=== PATIENT | female | born 1995 | race African-American/Black ===

== ENCOUNTER → 2020-03-17 09:44 | Outpatient (CLI) | payer OTHER, SELFPAY ==
[2020-03-17 12:22] LABS: Hematocrit 30.3 % (36-46)
[2020-03-17 12:35] LABS: GTT (PREG) 1 Hour PP 50gm Dose 86 mg/dL (76-139)
== END ==
PROVIDERS: Referring Provider Obstetrics & Gynecology; Visit Provider Obstetrics & Gynecology
DX: Z34.02 Encounter for supervision of normal first pregnancy, second trimester (principal); Z3A.26 26 weeks gestation of pregnancy
CPT/HCPCS: 36415; 82950; 85014; 85018

== ENCOUNTER → 2020-04-27 16:16 | Outpatient (CLI) | payer OTHER, SELFPAY ==
[2020-04-27 18:28] LABS: Add Manual Diff / Slide Review NO; Basophils Absolute Auto 0 /uL (0-100); Basophils Percent Auto 0.1 % (0-2); Eosinophils Absolute Auto 100 /uL (0-450); Eosinophils Percent Auto 1.3 % (2-4); Hematocrit 32.5 % (36-46); Hemoglobin 10.6 g/dL (12.0-16.0); Lymphocytes Absolute Auto 2200 /uL (1100-4500); Lymphocytes Percent Auto 21.6 % (25-40); Mean Corpuscular HGB Conc 32.5 % (30-36); Mean Corpuscular Hemoglobin 29.5 PG (26-34); Mean Corpuscular Volume 90.5 fL (80-100); Monocytes Absolute Auto 1000 /uL (0-900); Monocytes Percent Auto 9.7 % (3-14); Neutrophils Absolute Auto 7000 /uL (1500-7000); Neutrophils Percent Auto 67.3 % (50-75); Platelet Count 195 X10^3/uL (150-400); Red Blood Cell Count 3.59 X10^6/uL (4.0-5.2); Red Cell Distribution Width 13.4 % (11.6-14.8); White Blood Cell Count 10.4 X10^3/uL (4.5-11.0)
== END ==
PROVIDERS: Referring Provider Obstetrics & Gynecology; Visit Provider Obstetrics & Gynecology
DX: D64.9 Anemia, unspecified (principal)
CPT/HCPCS: 36415; 85025

== ENCOUNTER → 2020-05-11 17:30 | Outpatient (CLI) | payer OTHER, SELFPAY ==
[2020-05-13 08:13] LABS: Strep Grp B PCR NEG for Grp B Strep
== END ==
PROVIDERS: Visit Provider Obstetrics & Gynecology
DX: Z34.03 Encounter for supervision of normal first pregnancy, third trimester (principal); Z3A.35 35 weeks gestation of pregnancy
CPT/HCPCS: 87653

== ENCOUNTER 2020-05-26 09:07 | Observation (INO) | payer OTHER, SELFPAY ==
[2020-05-26 09:34] LABS: RBC Urine None Seen (0-5/HPF)
[2020-05-26 09:35] LABS: Appearance Urine UA CLEAR; Bilirubin Urine UA NEGATIVE (NEGATIVE); Color Urine UA YELLOW; Glucose Urine UA NEGATIVE (Negative); Ketones Urine UA TRACE (NEGATIVE); Leukocyte Esterase Urine UA TRACE (NEGATIVE); Nitrite Urine UA NEGATIVE (Negative); Occult Blood Urine UA NEGATIVE (Negative); Protein Urine UA 1+ (Negative); Urobilinogen Urine UA 0.2 E.U./dL (0.2)
[2020-05-26 09:37] LABS: pH Urine UA 6.5 (4.5-8.0)
[2020-05-26 09:46] LABS: Bacteria Urine Moderate (10-30); Culture Indicated Urine Specimen Cultured; Mucus Urine 2+ (Negative); Squamous Epithelial Cell Urine 1-5 /HPF (0-5/HPF); WBC Urine 1-5/HPF (0-5/HPF)
== END 2020-05-26 12:31 | disposition home or self-care (01) ==
PROVIDERS: Admitting Provider Obstetrics & Gynecology; Referring Provider Obstetrics & Gynecology; Visit Provider Obstetrics & Gynecology
DX: O99.013 Anemia complicating pregnancy, third trimester (principal); Z3A.37 37 weeks gestation of pregnancy
CPT/HCPCS: 59025; 59050; 81001; 87086; G0378; G0379

== ENCOUNTER 2020-05-30 19:07 | Inpatient (IN) | payer OTHER, SELFPAY ==
[2020-05-30 20:25] LABS: COVID19 -Nasal RAPID Negative (Negative)
[2020-05-30] MEDS: LACTATED RINGERS 1,000 ML 100 ML IV (23:00)
[2020-05-31 00:44] LABS: Add Manual Diff / Slide Review NO; Basophils Absolute Auto 0 /uL (0-100); Basophils Percent Auto 0.2 % (0-2); Eosinophils Absolute Auto 100 /uL (0-450); Eosinophils Percent Auto 1.3 % (2-4); Hematocrit 35.5 % (36-46); Hemoglobin 11.4 g/dL (12.0-16.0); Lymphocytes Absolute Auto 2100 /uL (1100-4500); Lymphocytes Percent Auto 22.5 % (25-40); Mean Corpuscular HGB Conc 32.3 % (30-36); Mean Corpuscular Hemoglobin 29.4 PG (26-34); Mean Corpuscular Volume 91.3 fL (80-100); Monocytes Absolute Auto 1000 /uL (0-900); Monocytes Percent Auto 10.7 % (3-14); Neutrophils Absolute Auto 6000 /uL (1500-7000); Neutrophils Percent Auto 65.3 % (50-75); Platelet Count 202 X10^3/uL (150-400); Red Blood Cell Count 3.89 X10^6/uL (4.0-5.2); Red Cell Distribution Width 12.9 % (11.6-14.8); White Blood Cell Count 9.1 X10^3/uL (4.5-11.0)
[2020-05-31] MEDS: OXYTOCIN PREMIX 30 UNIT/500 ML PLAST..BAG IV (04:00)
--- NOTE | 2020-05-31 06:20 | P.HPOB_ITS ---
OB HPI Date/Time Date of admission: 05/30/20 Date Patient Seen: 05/31/20 Time Patient Seen: 06:20 History of Present Condition Chief complaint: EVAL OF LABOR : 1 Para: 0 Estimated Date of Delivery: 06/15/20 Estimated Gestational Age (weeks): 37 Narrative: Sobia Bonds is a 24 year old @37+6 admitted in labor after SROM yesterday at 1700 for clear fluid, with copious leakage on admission and +amnisure. Patient has been augmented with pitocin overnight, reassuring and maternal status, no PIH complaints, no obstetric complaints except contractions and LOF prior to epidural. complicated by maternal SMA, partner deployed and could not be tested. MFM evaluated, patient to follow up . Patient has history of G6PD deficiency, denies any other contributory medical, surgical, social history. Reports family history of blood pressure problems in labor, uncertain if high or low. History of Present care: none Dating criteria: based on 1st trimester US only Ultrasounds: normal mid trimester US Obstetrical complications: none Medical complications: other (G6PD deficiency) Preadmission Labs Blood type: B (+) positive -: Antibody screen: negative, GBS status: negative, HBsAG: negative, HIV: negative and RPR/VDLR: negative -: Chlamydia screen: not detected and Gonorrhea screen: not detected -: Rubella: immune and Varicella: immune PAP: Normal Quad screen: Normal Urine: no growth 1 hr GTT: 86 Evaluation Evaluation Baseline heart rate: 155 Variability: Moderate (11-25) monitor accelerations: Present monitor decelerations: Prolonged (x1, 1 hr ago in setting of tachysystole) Contraction Frequency (minutes): 5 Uterine Contraction Intensity: Mild Category of Tracing: Reactive Status: Category l Cervical dilation (cm): 7 Cervical effacement (%): 100 station: -1 Laboratory results: Laboratory Tests 05/30/20 05/30/20 05/30/20 19:30 20:35 20:35 WBC 9.1 RBC 3.89 L Hgb 11.4 L Hct 35.5 L MCV 91.3 MCH 29.4 MCHC 32.3 RDW 12.9 Plt Count 202 Neut % (Auto) 65.3 Lymph % (Auto) 22.5 L [place] % (Auto) 10.7 Eos % (Auto) 1.3 L Baso % (Auto) 0.2 Neut # (Auto) 6000 Lymph # (Auto) 2100 [place] # (Auto) 1000 H Eos # (Auto) 100 Baso # (Auto) 0 SARS-CoV-2 (PCR) Negative Blood Type B Positive Antibody Screen Negative Comments: EFW 7#8 [facility] Medical History Acute bronchitis Adjustment disorder with mixed anxiety and depressed mood Allergic rhinitis Bacterial vaginosis Depressive disorder Skyssxs-3-jdakaqlbr dehydrogenase deficiency anemia Hyperopia of both eyes Keratosis pilaris Ovarian cyst (~10/15/19) Pelvic pain PTSD (post-traumatic stress disorder) Surgical History H/O adenoidectomy (~2002) H/O wisdom tooth extraction (~2017) S/P tonsillectomy (~2002) Family History Mother Thrombotic thrombocytopenic purpura (TTP) Father Bipolar 1 disorder Grandmother Stroke Grandfather No problems noted. Grandmother No problems noted. Grandfather Family estrangement Sister Lupus Social History marital status: unmarried,single (FOB will be back Mid-June 2020) lives independently: Yes pets and animals: Yes (Snake : Ball Python Peaceful and will be given away when baby arrives) education level: college (some College) occupational status: employed (Desk Work) current occupational exposures/hazards: Yes special reyna needs: No Smoking Status: Former smoker alcohol intake: former (prepregnancy) substance use type: does not use and marijuana (smoked 5-7 wga : aware and not using) Meds Home Medications and Allergies Home Medications Medication Instructions Recorded Confirmed Type ascorbic acid 100 mg-elderberry tab PO 02/17/20 05/25/20 History fruit 50 mg chewable tablet prenat.vits,abhishek,orc-qoos-ehdxo 1 tab PO DAILY 02/17/20 05/25/20 History cephalexin 500 mg capsule 500 mg PO TID #21 cap 05/26/20 Rx Allergies Allergy/AdvReac Type Severity Reaction Status Date / Time No Known Drug Allergies Allergy Verified 05/25/20 15:08 Review of Systems Constitutional Constitutional: Reports system reviewed and no additional complaints, except as documented Cardiovascular Cardiovascular: Reports system reviewed and no additional complaints, except as documented Respiratory Respiratory: Reports system reviewed and no additional complaints, except as documented Gastrointestinal Gastrointestinal: Reports system reviewed and no additional complaints, except as documented Neurologic Neurologic: Reports system reviewed and no additional complaints, except as documented Exam Vital Signs (past 8 hours): 80s-100s/40s-60s Const General: cooperative, healthy appearing, comfortable and anxious GI Palpation: soft and No tender External Female Exam: normal external appearance Objective Labs Result Diagrams: 05/30/20 20:35 Labs: Laboratory Results - last 24 hr 05/30/20 05/30/20 05/30/20 19:30 20:35 20:35 WBC 9.1 RBC 3.89 L Hgb 11.4 L Hct 35.5 L MCV 91.3 MCH 29.4 MCHC 32.3 RDW 12.9 Plt Count 202 Neut % (Auto) 65.3 Lymph % (Auto) 22.5 L [place] % (Auto) 10.7 Eos % (Auto) 1.3 L Baso % (Auto) 0.2 Neut # (Auto) 6000 Lymph # (Auto) 2100 [place] # (Auto) 1000 H Eos # (Auto) 100 Baso # (Auto) 0 SARS-CoV-2 (PCR) Negative Blood Type B Positive Antibody Screen Negative Assessment and Plan Assessment and Plan Assessment and Plan narrative: This patient is admitted in early labor after SROM at home. She is being augmented with pitocin due to protracted early labor, and is admitted per the usual protocol. Anticipate . - cEFM, toco - pitocin per protocol
[2020-05-31] MEDS: FENT 2MCG/ML BUPIV 0.125% EPI 200 MCG/100 ML PLAST..BAG 12 MCG EPIDURAL ×3 (07:08→15:33)
[2020-05-31] MEDS: LACTATED RINGERS 1,000 ML 100 ML IV (07:19)
--- NOTE | 2020-05-31 10:34 | PM.OBPNLAB ---
Date/Time Date Patient Seen: 05/31/20 Time Patient Seen: 10:34 Pain Control Pain control: epidural Pelvic Exam Dilation (cm): 3 Effacement (%): 100 station: -1 Amniotic membrane status: Ruptured Comments: Swelling at 10 o'clock position on the cervix Contractions Contractions on admission: irregular Monitor mode: External Pitocin rate (mU/min): 7 Contraction frequency (min): 4 Contraction duration (min): 1 Contraction pattern: Irregular Contraction intensity: Mild Status status: Category l Heart Rate Baseline: 135 Monitor Accelerations: Present Monitor Decelerations: Absent Monitor Variability: Moderate Assessment and Plan Assessment: other (Early to active labor) Plan: continuous present management Comments: IUPC placed to assess adequacy of contractions Begin antibiotics
[2020-05-31] MEDS: CEFAZOLIN 2 GM/100 ML FROZ.PIGGY IV ×2 (11:14→19:15)
--- NOTE | 2020-05-31 12:32 | PM.OBPNLAB ---
Date/Time Date Patient Seen: 05/31/20 Time Patient Seen: 12:32 Pain Control Pain control: epidural Pelvic Exam Dilation (cm): 6 Effacement (%): 100 station: 0 Amniotic membrane status: Ruptured Contractions Monitor mode: External Pitocin rate (mU/min): 12 Contraction frequency (min): 3 Contraction duration (min): 1 Contraction pattern: Regular Contraction intensity: Moderate Status status: Category l Heart Rate Baseline: 135 Monitor Accelerations: Present Monitor Decelerations: Absent Monitor Variability: Moderate Assessment and Plan Assessment: active labor Comments: IUPC replaced
--- NOTE | 2020-05-31 15:31 | PM.OBPNLAB ---
Date/Time Date Patient Seen: 05/31/20 Time Patient Seen: 15:32 Pain Control Pain control: epidural Pelvic Exam Dilation (cm): 9 Effacement (%): 100 station: -1 Amniotic membrane status: Ruptured Contractions Contractions on admission: none Monitor mode: External Pitocin rate (mU/min): 13 Contraction frequency (min): 3 Contraction duration (min): 1 Contraction pattern: Regular Contraction intensity: Moderate Intrauterine tone measurement: 200 Status status: Category l Heart Rate Baseline: 135 Monitor Accelerations: Present Monitor Decelerations: Absent Monitor Variability: Moderate Assessment and Plan Assessment: active labor Comments: Ultrasound: ROP presentation Plan: Peanut ball Side to side
--- NOTE | 2020-05-31 16:29 | PM.OBPNLAB ---
Date/Time Date Patient Seen: 05/31/20 Time Patient Seen: 16:29 Pain Control Pain control: epidural Pelvic Exam Dilation (cm): 10 Effacement (%): 100 station: +1 Amniotic membrane status: Ruptured Contractions Contractions on admission: none Monitor mode: External Pitocin rate (mU/min): 13 Contraction frequency (min): 3 Contraction duration (min): 1 Contraction pattern: Regular Contraction intensity: Moderate Intrauterine tone measurement: 200 Status status: Category l Heart Rate Baseline: 135 Monitor Accelerations: Present Monitor Decelerations: Absent Monitor Variability: Moderate Assessment and Plan Assessment: active labor Plan: other Comments: Begin pushing Expectant management to
--- NOTE | 2020-05-31 20:14 | PM.OBPNLAB ---
Date/Time Date Patient Seen: 05/31/20 Time Patient Seen: 20:14 Pain Control Pain control: epidural Pelvic Exam Dilation (cm): 10 Effacement (%): 100 station: +1 Amniotic membrane status: Ruptured Contractions Monitor mode: External Pitocin rate (mU/min): 13 Contraction frequency (min): 3 Contraction duration (min): 1 Contraction pattern: Regular Contraction intensity: Moderate Intrauterine tone measurement: 200 Status status: Category l Heart Rate Baseline: 135 Monitor Accelerations: Present Monitor Decelerations: Absent Monitor Variability: Moderate Assessment and Plan Assessment: other (Stage 2 arrest of labor) Plan: Comments: There was no further descent of the head with 3 pulls of the vacuum. A decision was made to proceed to a primary low-transverse section. The risks, benefits, and alternatives to the procedure were explained to the patient. The risks including bleeding, infection, injury to the bowel, bladder, or ureters. She understands these risks and agrees to proceed. A full par Q was held and consent form was signed.
--- NOTE | 2020-05-31 20:16 | PM.GYNOP.1 ---
Operative Date/Time/Diagnoses Date of procedure: 05/31/20 Time of procedure: 21:46 Pre-op diagnosis: Premature and prolonged rupture membranes Stage II arrest of labor 37-5/7 weeks gestation Post-op diagnosis: same Procedure & Clinicians Procedure: Primary low-transverse section Indications: 37-5/7 weeks gestation Prolonged and premature rupture of membranes Stage II arrest of labor Failed vacuum Surgeon: Rose Mary Crouch Kaiawhina Kohanga Reo: Jimena Peralta Anesthesia Type: Epidural Operative Notes Closure Type: primary Specimen(s): other (Cord bloods, placenta to path) Applied: catheter Blood products transfused: none Procedure in detail: The patient was taken to the operating room where she was placed in the dorsal supine position with a leftward tilt and prepped and draped in the usual sterile fashion. The head was elevated from below. A timeout was performed. After epidural analgesia was found to be adequate, a Pfannenstiel skin incision was made 2 fingerbreadths above the pubic symphysis and carried through to the underlying layer fascia. The fascia was nicked in the midline, and the incision extended bilaterally with the Og scissors. The superior aspect of the fascial incision was grasped with a Jaye clamps, elevated, and the underlying rectus muscles dissected off sharply and bluntly. Attention was then turned to the inferior aspect of this incision which in a similar fashion was grasped with a Jaye clamps, elevated, and the underlying rectus muscles dissected off sharply and bluntly. The rectus muscles were in the midline. The peritoneum was identified, grasped between 2 hemostats, and entered sharply with the Metzenbaum scissors. This incision was extended superiorly and inferiorly with good visualization of the bladder. The bladder blade was inserted. The vesicouterine peritoneum was identified, grasped with the pickup, and entered sharply with the Metzenbaum scissors. This incision was extended bilaterally, and the bladder flap was created digitally. The bladder blade was reinserted. The lower uterine segment was incised in a transverse fashion with the scalpel. Upon entering the amniotic sac there was a small amount of clear amniotic fluid. The 's head was delivered. The nose and mouth were suctioned with bulb suction. The remainder of the body delivered without difficulty. The cord was double clamped and cut. The was handed off to waiting RN and RT. The placenta was delivered manually. The uterus was cleared of all clots and debris. The uterine incision was repaired with #1 chromic in a running interlocking fashion, and a second layer the same suture was used for an imbricating layer. The stasis was achieved. The tubes and ovaries were examined and were found to be normal. The gutters were cleared of all clots and debris. The bladder flap was reapproximated using 2-0 Vicryl in a running fashion. The parietal peritoneum was closed using 2-0 Vicryl in a running fashion. The fascia was reapproximated using 0 Vicryl in a running fashion. Subcutaneous layer was copiously irrigated with warm normal saline. 3 simple interrupted sutures of 3-0 Vicryl were placed to reapproximate the subcutaneous layer. The skin was closed with 4-0 Biosyn in a subcuticular fashion. Steri-Strips were placed. An Aquacel dressing was placed. The uterus was expressed of a small amount of old blood. Sponge, lap, and instrument counts were correct x-2. The patient tolerated the procedure well, and was taken to PACU in stable condition. Complications: none Post-operative Condition: stable Disposition: PACU Plan for aftercare: To the center after recovery
--- NOTE | 2020-05-31 21:02 | SUR.OPER ---
Supine on Padded OR bed, head on pillow, safety belt at thigh, arms secured on padded arm boards at <90 degrees abduction. Bump under right buttock. Legs uncrossed with pillow under knees, gel pad to heels, tape over blanket to lower legs.
--- NOTE | 2020-05-31 21:08 | SUR.OPER ---
Viable baby boy delivered at 2103. placenta delivered. Cord blood tubes X2, placenta given to L&D RN.
[2020-05-31 21:15] VITALS: BP 120/62; PULSE 97; RESP 20; O2SAT 100
[2020-05-31] MEDS: LACTATED RINGERS 1,000 ML 120 ML IV (21:25)
[2020-05-31 21:45] VITALS: BP 108/46; PULSE 96; RESP 11; TEMP 36.9; O2SAT 100
[2020-05-31] MEDS: OXYCODONE IR 5 MG TABLET PO ×2 (21:53→23:38)
[2020-05-31] MEDS: METHYLERGONOVINE 0.2 MG/ML VIAL IM (21:54)
[2020-05-31 21:55] VITALS: BP 121/53; PULSE 109; RESP 13; O2SAT 100
[2020-05-31 22:00] VITALS: BP 113/58; PULSE 104; RESP 16; O2SAT 100
[2020-05-31 22:05] VITALS: BP 118/62; PULSE 100; RESP 100; O2SAT 19
[2020-05-31 22:10] VITALS: BP 115/62; PULSE 981; RESP 18; TEMP 36.5; O2SAT 100
--- NOTE | 2020-05-31 22:43 | SUR.PHASEI ---
2217 Stable -- to center, report previously given over the phone. New seymour-pad and chux under the patient, tolerating PO intake of juice, crackers, and applesauce well. Patient very appreciative and polite. Mom and baby present in the room, pt talking with baby's dad over the phone. SCDs applied, FARRAH RN obtaining VS. Updated report, no further questions from patient, mom, or staff.
[2020-06-01] MEDS: KETOROLAC 30 MG/ML VIAL IV ×3 (03:50→18:13)
[2020-06-01] MEDS: OXYCODONE IR 10 MG TABLET PO ×3 (03:52→23:49)
[2020-06-01] MEDS: ACETAMINOPHEN 325 MG TABLET 650 MG PO ×4 (03:53→23:49)
[2020-06-01 10:04] VITALS: BP 112/61
[2020-06-01] MEDS: PRENATAL VIT,CALC/IRON/FOLIC 1 TABLET 1 TAB PO (11:01)
[2020-06-01] MEDS: DOCUSATE 250 MG CAPSULE PO (11:01)
[2020-06-01 11:56] LABS: Hematocrit 31.2 % (36-46); Hemoglobin 10.5 g/dL (12.0-16.0)
[2020-06-01] MEDS: OXYCODONE IR 5 MG TABLET PO (17:10)
--- NOTE | 2020-06-01 17:38 | PM.OBPN.1 ---
Subjective - OB Subjective Patient comments: no complaints, pain well controlled, tolerating diet and flatus present baby status: doing well and nursing well [place] feeding status: exclusively breast feeding Date Patient Seen: 06/01/20 Time Patient Seen: 13:15 Interval history: Patient is a 24-year-old 1 para 1 postop day # 1 status post primary low-transverse section secondary to stage II arrest of labor. Exam Vital Signs (past 8 hours): - 06/01/20 10:04 Blood Pressure 112/61 Oxygen Delivery Method Room Air Narrative Exam Narrative: Generally: Patient is sitting up in bed, no acute distress Lungs: Clear to auscultation bilaterally Cardiovascular: Regular rate and rhythm Fundus: Firm at U -1 Extremities: 1+ edema, 1+ DTRs, negative Homans Objective Labs Result Diagrams: 06/01/20 11:50 Labs: Laboratory Results - last 24 hr 06/01/20 11:50 Hgb 10.5 L Hct 31.2 L Assessment & Plan Plan day: 1 plan OB: routine postop care Time Spent With Patient Time: Total time spent is greater than 50% in coordination of care (as documented) at patient's floor/unit and/or counseling patient: Time with patient: less than 15 minutes
[2020-06-02] MEDS: IBUPROFEN 600 MG TABLET PO (02:10)
[2020-06-02] MEDS: OXYCODONE IR 10 MG TABLET PO (07:40)
[2020-06-02] MEDS: PRENATAL VIT,CALC/IRON/FOLIC 1 TABLET 1 TAB PO (09:43)
[2020-06-02] MEDS: DOCUSATE 250 MG CAPSULE PO (09:43)
[2020-06-02 10:36] VITALS: BP 125/54; PULSE 68; RESP 17; TEMP 37
--- NOTE | 2020-06-02 10:46 | PM.OBDS.1 ---
Discharge Providers Provider Date of admission: 05/30/20 19:07 Discharge Date: 06/02/20 Primary care physician: Doctor Hardy MD Consults: 05/31/20 22:09 Consult to [employer] Routine Comment: Discharge provider: Rose Mary Crouch MD Summary Hospital Course Date Patient Seen: 06/02/20 Time Patient Seen: 08:40 Diagnoses: Thirty-seven and 6 7th weeks gestation Prolonged active phase of labor Stage II arrest of labor Occiput posterior presentation Hospital Course: Patient is a 24-year-old 1 para 1 who presented on May 30, 2020 with spontaneous rupture membranes with clear amniotic fluid. She was not shagufta regularly. On the morning of May 31, 2020 Pitocin augmentation was started. She was 3 cm. An intrauterine pressure catheter was placed to assess contraction adequacy. She progressed very slowly to complete dilation at 330. She pushed for 3+ hours without any further descent of the head past +1 station. A vacuum assisted delivery was attempted without any movement of the head. The decision was made to proceed to a primary low-transverse section. The patient underwent this procedure without complication. Her course has been unremarkable. Her bleeding has tapered. Her pain is well controlled. No nausea or vomiting. She is tolerating a diet. She has emptied her bladder without catheter. is going well. She is discharged home. Peripartum Data Infant Delivery Method: Section Laceration Description: None Episiotomy description: None Procedures: Pitocin augmentation of labor Intrauterine pressure catheter placement Epidural analgesia Attempted vacuum assisted vaginal delivery Primary low-transverse section complications: none 1: Gender: Male Disposition of : home Status at Discharge Cognitive/behavioral status at discharge: oriented Functional status at discharge: independent ambulation Overall status at discharge: patient is progressing back to baseline Time Spent with Patient Time attestation: Total time spent providing and/or coordinating discharge services: Time spent: Less than 30 minutes Objective Labs Result Diagrams: 06/01/20 11:50 Labs: Laboratory Results - last 24 hr 06/01/20 11:50 Hgb 10.5 L Hct 31.2 L Exam Vital Signs (past 8 hours): - 06/02/20 10:36 Temperature 98.6 F Pulse Rate 68 Respiratory Rate 17 Blood Pressure 125/54 L Oxygen Delivery Method Room Air Narrative Exam Narrative: Generally: Patient is sitting up in bed, no acute distress Lungs: Clear to auscultation bilaterally Cardiovascular: Regular rate and rhythm Fundus: Firm at U -1 Incision: Clean dry and intact with Aquacel dressing Extremities: 1+ edema, negative Homans Discharge Plan Discharge Plan Patient Disposition: Home Provider Discharge Comment: Call with fever, chills, redness or drainage around the incision, or bleeding vaginally more than a pad in an hour Ibuprofen 600 mg every 6 hours Tylenol 650 mg every 6 hours Oxycodone 5 mg every 3 hours as needed Discharge orders & Medications Prescriptions: New ibuprofen 600 mg tablet 600 mg PO Q6H PRN (Reason: cramping) Qty: 30 RF: 2 oxycodone 5 mg tablet 5 mg PO Q4H PRN (Reason: pain) Qty: 20 RF: 0 prenat.vits,abhishek,hez-ipup-xycxm Tablet 1 tab PO DAILY Qty: 30 RF: 11 Continued prenat.vits,abhishek,buw-lowe-kjvel Tablet 1 tab PO DAILY RF: 0 ascorbic acid-elderberry fruit [Airborne (elderberry)] 100-50 mg tablet,chewable 1 tab PO DAILY RF: 0 Discontinued cephalexin 500 mg capsule 500 mg PO TID Qty: 21 RF: 0 Follow up/Referrals: Rose Mary Crouch MD [Physician] - 06/08/20 (Needs Aquacel removal on 06/08/20@ 1545) Diet/Activity/Treatments Diet: Regular Activity: No heavy lifting Skin/Wound/Dressing Care Report to your healthcare provider any signs of infection, such as:: chills, fever, increased pain, unusual drainage and unusual redness Dressing: Do not remove Visit Report/Discharge Packet Instructions: DI for , DI for Prescription Opioid Use Stand Alone Forms: Discharge: Care Discharge Data Primary Care Provider: Miscellaneous,Doctor
[2020-06-02] MEDS: RHO(D) IMMUNE GLOBULIN 1,500 UNIT SYRINGE 1500 UNIT IM (11:31)
== END 2020-06-02 11:50 | disposition home or self-care (01) | DRG 788 ==
PROVIDERS: Admitting Provider Obstetrics & Gynecology; Referring Provider Obstetrics & Gynecology; Visit Provider Obstetrics & Gynecology
PROC: 10D00Z1 Extraction of Products of Conception, Low, Open Approach (ICD-10-PCS; CPT 59514; principal; 2020-05-31 20:30)
DX: O42.92 Full-term premature rupture of membranes, unspecified as to length of time between rupture and onset of labor (principal); Z3A.37 37 weeks gestation of pregnancy; Z37.0 Single live birth; O62.1 Secondary uterine inertia; O66.5 Attempted application of vacuum extractor and forceps; O76 Abnormality in fetal heart rate and rhythm complicating labor and delivery; O32.8XX0 Maternal care for other malpresentation of fetus, not applicable or unspecified; D55.0 Anemia due to glucose-6-phosphate dehydrogenase [G6PD] deficiency; O99.02 Anemia complicating childbirth; Z20.822 Contact with and (suspected) exposure to COVID-19
CPT/HCPCS: 01967; 01968; 36415; 59050; 59514; 59515; 85014; 85018; 85025; 86850; 86900; 86901; 87635; C9803; G0379; J0690; J1885; J2210; J2274; J2405; J2590; J2790